=== PATIENT | male | born 1980 | race Caucasian/White ===

== ENCOUNTER 2021-05-05 18:27 | Emergency (ER) | payer MEDICAID, SELFPAY ==
[2021-05-05 18:39] VITALS: BP 134/74; PULSE 116; RESP 18; TEMP 39.4; O2SAT 93; BMI 28.0
--- NOTE | 2021-05-05 18:52 | XRR_ITS ---
PROCEDURE INFORMATION: Exam: XR Chest Exam date and time: 05/05/2021 6:52 PM Age: 40 years old Clinical indication: Cough and fever; Additional info: Fever and upper respiratory symptoms TECHNIQUE: Imaging protocol: XR of the chest. Views: 1 view. COMPARISON: No relevant prior studies available. FINDINGS: Lungs: Unremarkable. No consolidation. Pleural spaces: Unremarkable. No pleural effusion. No pneumothorax. Heart/Mediastinum: Unremarkable. No cardiomegaly. Bones/joints: Unremarkable. XR/XR chest 1V portable [id number] IMPRESSION: No acute findings.
--- NOTE | 2021-05-05 18:56 | W.ED.FEVER ---
HPI - Fever General: Chief Complaint: Fever Stated Complaint: Fever\Chills Time Seen by Provider: 05/05/21 18:51 History of Present Illness: Patient is a 40-year-old male comes to the ED with fever and upper respiratory symptoms. Symptoms started yesterday. He is had a fever and has taken some ibuprofen and Tylenol yesterday and then took 600 mg of ibuprofen at 5:15 PM this evening for fever. He reports nasal congestion drainage and a productive cough produces a yellow sputum. Endorses body aches. Patient has had COVID-19 vaccination and also diagnosed with Covid and recovered from it after vaccinated. He reports that one of his children recently had same symptoms but recovered quickly. Patient has been able to keep food and fluids down. Patient denies any nausea/vomiting, abdominal pain, sore throat, bladder or bowel symptoms. Associated symptoms: Reports nasal congestion; Deny abdominal pain, flank pain, chills, chest pain, diarrhea, dysuria, headache(s), nausea or vomiting Review of Systems Const: Reports: fever(s) and body aches; Denies: chills or fatigue Eyes: Denies: change in vision or eye discomfort ENMT: Reports: nasal discharge and nasal congestion; Denies: throat pain, odynophagia or ear or mastoid pain Card: Denies: chest pain, palpitations, edema, swelling of feet/ankles, dyspnea on exertion or orthopnea Resp: Reports: productive cough and change in phlegm color (Yellow sputum); Denies: dyspnea or non-productive cough GI: Denies: abdominal pain, nausea, vomiting, diarrhea, constipation or hematochezia : Denies: flank pain, difficulty urinating, dysuria or hematuria Musc: Denies: neck pain, back pain or extremity swelling Skin/Breast: Denies: rash or new lesions Neuro: Denies: headache(s), numbness in extremities or weakness in extremities PFSH ED PFSH: Medical History No pertinent family history Surgical History No pertinent past surgical history Physical Exam Const: COMMON NORMALS: no acute distress, patient oriented x3 and alert GENERAL APPEARANCE: cooperative and comfortable HENMT: COMMON NORMALS: normocephalic HEAD & SCALP: normocephalic MOUTH: Normal oral and palatal mucosa present THROAT: posterior oropharynx normal and uvula midline Neck/C-Spine: COMMON NORMALS: supple GENERAL: Yes normal visual inspection Resp: COMMON NORMALS: normal respiratory effort, No retractions, No use of accessory muscles and clear to auscultation bilaterally EFFORT & INSPECTION: Yes able to speak in complete sentences, No tachypneic, No respiratory distress and Yes Actively coughing productive AUSCULTATION: clear to auscultation bilaterally and wheezes (mild upper bilateral wheezing) expiratory wheezes and upper bilaterally Cardio: COMMON NORMALS: regular rate, regular rhythm, S1 normal heart sound present, S2 normal heart sound present, No gallops present (Cardio), No clicks present (Cardio), No murmurs present (Cardio) and Peripheral pulses 2+ throughout RATE: regular rate RHYTHM: regular rhythm HEART SOUNDS: S1 normal heart sound present and S2 normal heart sound present PERIPHERAL PULSES: Peripheral pulses 2+ throughout GI: COMMON NORMALS: Normal to inspection, nondistended, normoactive bowel sounds present, Soft to palpation, non-tender and no masses PALPATION: Yes Soft to palpation : COMMON NORMALS: Yes no CVA tenderness BLADDER/KIDNEY EXAM: Yes no CVA tenderness Back/Pelvis: COMMON NORMALS: no CVA tenderness Extremity: COMMON NORMALS: normal to inspection Neuro: COMMON NORMALS: patient oriented x3 and moves all extremities SENSORIUM/ORIENTATION: Yes alert Skin: GENERAL SKIN EXAM: dry skin Course Vital Signs: Vital signs: Vital Signs Temperature 100.7 F H 05/05/21 20:31 Pulse Rate 113 H 05/05/21 20:31 Respiratory Rate 16 05/05/21 20:31 Blood Pressure 135/77 05/05/21 20:31 Pulse Oximetry 94 05/05/21 20:31 MDM - Fever Medical Decision Making Patient is a 40-year-old male who comes to the ED with upper respiratory viral symptoms. Symptoms started yesterday. He has a fever, nasal congestion, cough that is productive with yellow sputum and body aches. He has been able to keep p.o. food and fluids down has no episodes of vomiting, abdominal pain or diarrhea. Patient is a fever with a temperature of 103 on arrival here in the ED. He appears in no acute distress or pain. He has some mild wheezing in bilateral upper lungs. Chest x-ray showed no acute findings. Covid was negative. Influenza A positive. Patient was given Tylenol and a DuoNeb breathing treatment while here in the ED. Patient was stable for discharge. His temperature went down to 100.7 at discharge. He was sent home with a prescription for prednisone. He was told to follow-up with his PCP in the next 5 to 7 days for reevaluation. He was discharged home while Covid and influenza labs were pending. I told him to contact [facility] tomorrow morning to get Covid and influenza test results. Patient understood and agreed with plan. Lab Data I reviewed the patient's lab results. Radiology Impressions Chest X-Ray 05/05/21 18:52 IMPRESSION: No acute findings. Laboratory Results Nasal Influ A H1 2009 PCR Cancelled 05/05/21 21:06 Coronavirus 229E (PCR) Not detected (NOT DETECT) 05/05/21 19:05 Influenza A (H1) PCR Cancelled 05/05/21 21:06 Influenza A (H3) PCR Cancelled 05/05/21 21:06 Influenza Type A (PCR) Cancelled 05/05/21 21:06 Influenza Type B (PCR) Cancelled 05/05/21 21:06 SARS-CoV-2 (PCR) Not detected (NOT DETECT) 05/05/21 19:05 Discharge Plan Discharge Patient Disposition: Home Clinical Impression: Influenza A Condition: Stable Prescriptions: New prednisone 5 mg tablets,dose pack See Rx Instructions .ROUTE .COMPLEX Qty: 21 0RF Rx Instructions: prednisone 5 mg: take 8 tablets (40 mg) on Day 1; 7 tablets (35 mg) on Day 2; then decrease by 1 tablet every day until finished No Action amlodipine-benazepril 10-20 mg Capsule 1 cap PO DAILY 0RF escitalopram oxalate 20 mg tablet 20 mg PO DAILY 0RF Multi For Him (no iron) 400-40 mcg Capsule 1 cap PO DAILY 0RF Discharge Orders: Discharge ED (Routine); Ordered 05/05/21 Ordered By: Wolf Medina Discharge Diet: Regular Discharge Activity: Increase activity as tolerated Patient Instructions: Viral Syndrome (ED) Activity Restrictions/Additional Instructions: Follow-up with medical provider as directed in the next 5 to 7 days for reevaluation. Your influenza and Covid tests are still pending so contact [facility] in the morning to find out results. Take medications as prescribed. Continue rotating between Tylenol and ibuprofen to help with fevers. Drink plenty of fluids to stay hydrated. Return to the ER or your medical provider if condition worsens. Please read and understand discharge instructions. Thank you for choosing [facility] for your healthcare needs today. Please realize this is an emergency room and that we are providing you with a medical screening exam and this may not be complete and all inclusive of all the testing and or work up that you may need to determine your ailment or severity of your illness. It is very important that you follow up as instructed or that you return to the Emergency Department should you have concerns or if your condition changes or worsens in any way. Coding Level of Care Code ED Firer Portable Boiler for Silvestre Damon Exam Comprehensive
[2021-05-05] MEDS: acetaminophen 500 mg Tablet 1000 MG PO (19:12)
[2021-05-05 19:24] VITALS: BP 158/83; PULSE 108; RESP 16; TEMP 39.1; O2SAT 95
[2021-05-05 19:57] VITALS: PULSE 106; RESP 20; O2SAT 94
[2021-05-05] MEDS: ipratropium-albuterol 3 mL Neb INHALATION (19:57)
[2021-05-05 20:02] VITALS: PULSE 107
[2021-05-05 20:31] VITALS: BP 135/77; PULSE 113; RESP 16; TEMP 38.2; O2SAT 94
[2021-05-05 21:00] LABS: Adenovirus Not Detected (NOT DETECT); Chlamydia Pneumoniae Not Detected (NOT DETECT); Coronavirus 229E,HKU1,NL63,OC4 Not Detected (NOT DETECT); Human Metapneumovirus Not Detected (NOT DETECT); Human Rhinovirus/Enterovirus Not Detected (NOT DETECT); Influenza A Detected (NOT DETECT); Influenza A H1 Not Detected (NOT DETECT); Influenza A H1-2009 Not Detected (NOT DETECT); Influenza A H3 Detected (NOT DETECT); Influenza B Not Detected (NOT DETECT); Mycoplasma Pneumoniae Not Detected (NOT DETECT); Parainfluenza Virus Type 1 Not Detected (NOT DETECT); Parainfluenza Virus Type 2 Not Detected (NOT DETECT); Parainfluenza Virus Type 3 Not Detected (NOT DETECT); Parainfluenza Virus Type 4 Not Detected (NOT DETECT); Respiratory Syncytial Virus A Not Detected (NOT DETECT); Respiratory Syncytial Virus B Not Detected (NOT DETECT); SARS-COV-2 Not Detected (NOT DETECT)
[2021-05-05 21:07] LABS: Results from GEN
== END 2021-05-05 20:32 | disposition home or self-care (01) ==
PROVIDERS: Emergency Provider Physician Assistant
DX: J10.1 Influenza due to other identified influenza virus with other respiratory manifestations (principal); Z20.822 Contact with and (suspected) exposure to COVID-19
CPT/HCPCS: 71045; 87631; 87635; 94640; 99283

== ENCOUNTER 2022-01-03 10:33 | Emergency (ER) | payer MEDICAID, SELFPAY ==
[2022-01-03 10:55] VITALS: BP 151/72; PULSE 85; RESP 16; TEMP 37.1; O2SAT 96; BMI 25.8
--- NOTE | 2022-01-03 11:08 | XRR_ITS ---
PROCEDURE INFORMATION: Exam: XR Chest Exam date and time: 01/03/2022 12:31 PM Age: 41 years old Clinical indication: Cough and dyspnea; Additional info: Dyspnea/cough TECHNIQUE: Imaging protocol: Radiologic exam of the chest. Views: 1 view. COMPARISON: CR XR chest 1V portable [id number] 05/05/2021 6:05 PM FINDINGS: Lungs: Left basilar airspace opacity. Pleural spaces: Unremarkable. No pleural effusion. No pneumothorax. Heart/Mediastinum: Unremarkable. No cardiomegaly. Bones/joints: Unremarkable. XR/XR chest 1V portable [id number] IMPRESSION: Left basilar airspace opacity is suspicious for pneumonia.
[2022-01-03 11:18] VITALS: BP 125/71; PULSE 85; RESP 16; TEMP 37.1; O2SAT 93
--- NOTE | 2022-01-03 11:21 | ED_ITS ---
HPI - SOB/Dyspnea General: Chief Complaint: Upper Respiratory Infection Stated Complaint: Chills, hard to breath. Time Seen by Provider: 01/03/22 11:07 Source: patient Mode of arrival: ambulatory History of Present Illness: HPI Narrative: 41-year-old female presents emergency room complaining of cough and shortness of breath for the last 12 days. Cough is been moderately productive low-grade fever no history of any chronic respiratory illnesses other family members with respiratory illnesses at home. Denies chest pain denies abdominal pain MD elicited complaint: shortness of breath and cough Onset (ago): day(s) (12) Timing: constant and progressively worsening Severity: moderate Exacerbating factors: nothing Relieving factors: nothing Associated symptoms: Reports chest congestion and cough; Deny abdominal pain, chest pain, diaphoresis, dizziness, extremity pain, fever(s), hemoptysis, lightheadedness, myalgias, nausea, orthopnea, palpitations, paresthesias, polydipsia, polyuria, rash, sense of impending doom, syncope or vomiting Treatment prior to arrival: none Review of Systems Const: Reports: fatigue; Denies: fever(s), chills, malaise or diaphoresis ENMT: Denies: throat pain, ear or mastoid pain, nasal discharge or nasal congestion Card: Denies: chest pain, palpitations, lightheadedness, syncope or orthopnea Resp: Reports: chest congestion; Denies: hemoptysis GI: Denies: abdominal pain, nausea or vomiting : Denies: flank pain, dysuria, urinary frequency or urinary urgency Musc: Denies: extremity pain Skin/Breast: Denies: rash or pruritus Neuro: Denies: dizziness Endo: Denies: polyuria or polydipsia PFSH ED PFSH: Medical History No pertinent family history Surgical History No pertinent past surgical history Physical Exam Const: GENERAL APPEARANCE: cooperative and comfortable ORIENTATION/CONSCIOUSNESS: Yes awake, Yes oriented to person, Yes oriented to place and Yes oriented to time HENMT: COMMON NORMALS: normocephalic, atraumatic and hearing grossly normal b ilaterally HEAD & SCALP: normocephalic and atraumatic Resp: COMMON NORMALS: normal respiratory effort, No retractions, No use of accessory muscles and clear to auscultation bilaterally AUSCULTATION: clear to auscultation bilaterally Cardio: COMMON NORMALS: regular rate, regular rhythm and No murmurs present (Cardio) RATE: regular rate RHYTHM: regular rhythm GI: COMMON NORMALS: Soft to palpation and No hepatosplenomegaly present AUSCULTATION: Yes normoactive bowel sounds PALPATION: Yes Soft to palpation, No Tenderness to palpation present (GI), No Guarding due to palpation present (GI) and Yes No hepatosplenomegaly present Extremity: COMMON NORMALS: normal to inspection, capillary refill normal, no clubbing, cyanosis or edema, no calf tenderness and no pedal edema Neuro: SENSORIUM/ORIENTATION: Yes oriented to person, Yes oriented to place and Yes oriented to time Skin: COMMON NORMALS: no rashes or lesions noted GENERAL SKIN EXAM: no rashes or lesions noted Course Vital Signs: Vital signs: Vital Signs Temperature 98.7 F 01/03/22 13:13 Pulse Rate 85 01/03/22 13:13 Respiratory Rate 16 01/03/22 13:13 Blood Pressure 104/83 01/03/22 13:13 Pulse Oximetry 93 01/03/22 13:13 Oxygen Delivery Me thod 01/03/22 11:18 MDM - SOB/Dyspnea Medical Decision Making Left lower lobe pneumonia. Start oral antibiotics follow-up if not improving Medical Records I reviewed the patient's medical records. Lab Data I reviewed the patient's lab results. 01/03/22 11:26 01/03/22 11:26 Labs/Radiology: Radiology Impressions Chest X-Ray 01/03/22 11:08 IMPRESSION: Left basilar airspace opacity is suspicious for pneumonia. Laboratory Results WBC 9.8 10^3/uL (4.0-10.0) 01/03/22 11: RBC 4.99 10^6/uL (4.1-5.3) 01/03/22 11:26 Hgb 15.2 g/dL (11.7-16.6) 01/03/22 11: Hct 44.9 % (42.0-52.0) 01/03/22 11: MCV 90.0 fl (80-94) 01/03/22 11:26 MCH 30.5 pg (28.0-34.0) 01/03/22 11: MCHC 33.9 g/dL (30.0-36.0) 01/03/22 11: RDW 12.6 % (12.1-15.1) 01/03/22 11: Plt Count 371 10^3/cmm (130-400) 01/03/22 11: MPV 9.7 fL (7.4-10.4) 01/03/22 11: Neut % (Auto) 73.2 % 01/03/22 11:26 Lymph % (Auto) 14.3 % 01/03/22 11:26 Tompkins % (Auto) 7.2 % 01/03/22 11: Eos % (Auto) 4.2 % 01/03/22 11: Baso % (Auto) 0.7 % 01/03/22 11: Neut # (Auto) 7.16 10^3/uL (1.8-7.7) 01/03/22 11: Lymph # (Auto) 1.4 10^3/uL (0.8-4.8) 01/03/22 11: Tompkins # (Auto) 0.7 10^3/uL (0.2-0.9) 01/03/22 11: Eos # (Auto) 0.4 10^3/uL (0.0-0.8) 01/03/22 11: Baso # (Auto) 0.1 10^3/uL (0.0-0.1) 01/03/22 11: Nucleated RBC % (auto) 0 % 01/03/22 11: Nucleated RBCs # 0.0 /100WBC 01/03/22 11:26 Sodium 140 mmol/L (136-145) 01/03/22 11: Potassium 3.5 mmol/L (3.5-5.1) 01/03/22 11: Chloride 102 mmol/L (98-107) 01/03/22 11: Carbon Dioxide 25 mmol/L (22-29) 01/03/22 11: Anion Gap 16.5 (5-19) 01/03/22 11: BUN 9 mg/dL (6-20) 01/03/22 11: Creatinine 1.0 mg/dL (0.7-1.2) 01/03/22 11: GFR Calculation 83.2 mL/min (90-130) L 01/03/22 11:26 Glucose 133 mg/dL (65-115) H 01/03/22 11:26 Calculated Osmolality 291 mOsm/kg (285-295) 01/03/22 11:26 Calcium 9.1 mg/dL (8.5-10.5) 01/03/22 11:26 Total Bilirubin 0.6 mg/dL (0.15-1.2) 01/03/22 11:26 AST 14 U/L (0-40) 01/03/22 11:26 ALT 13 U/L (0-41) 01/03/22 11:26 Alkaline Phosphatase 110 U/L (40-130) 01/03/22 11:26 Total Protein 7.1 g/dL (6.6-8.7) 01/03/22 11: Albumin 4.0 g/dL (3.5-5.2) 01/03/22 11: Globulin 3.1 g/dL (1.3-4.6) 01/03/22 11:26 Discharge Plan Discharge Patient Disposition: Home Clinical Impression: LLL pneumonia Condition: Stable Prescriptions: New albuterol sulfate 90 mcg/actuation HFA aerosol inhaler 2 inh INHALATION Q4H PRN (Reason: shortness of breath or wheezing) Qty: 18 0RF No Action amlodipine-benazepril 10-20 mg Capsule 1 cap PO DAILY escitalopram oxalate 20 mg tablet 20 mg PO DAILY Multi For Him (no iron) 400-40 mcg Capsule 1 cap PO DAILY prednisone 5 mg tablets,dose pack See Rx Instructions .ROUTE .COMPLEX Qty: 21 0RF Rx Instructions: prednisone 5 mg: take 8 tablets (40 mg) on Day 1; 7 tablets (35 mg) on Day 2; then decrease by 1 tablet every day until finished Discharge Orders: Discharge ED (Routine); Ordered 01/03/22 Ordered By: Wero Tamayo Discharge Diet: Usual diet Discharge Activity: Increase activity as tolerated Activity Restrictions/Additional Instructions: Levaquin once daily for 7 days. Use albuterol as needed for relief of cough congestion if not improving the next 3 to 4 days follow-up with primary care doctor. Coding Level of Care Code ED Sagger Preparer for Chg Marisol
[2022-01-03 11:31] LABS: Basophils # 0.1 10^3/uL (0.0-0.1); Basophils % 0.7 %; Eosinophils # 0.4 10^3/uL (0.0-0.8); Eosinophils % 4.2 %; Hematocrit 44.9 % (42.0-52.0); Hemoglobin 15.2 g/dL (11.7-16.6); Lymphocytes # 1.4 10^3/uL (0.8-4.8); Lymphocytes % 14.3 %; Mean Corpuscular HGB Conc 33.9 g/dL (30.0-36.0); Mean Corpuscular Hemoglobin 30.5 pg (28.0-34.0); Mean Platelet Volume 9.7 fL (7.4-10.4); Monocytes # 0.7 10^3/uL (0.2-0.9); Monocytes % 7.2 %; Neutrophils # 7.16 10^3/uL (1.8-7.7); Neutrophils % 73.2 %; Nucleated Red Blood Cells % 0 %; Platelet Count 371 10^3/cmm (130-400); Red Blood Count 4.99 10^6/uL (4.1-5.3); Red Cell Distribution Width 12.6 % (12.1-15.1); White Blood Count 9.8 10^3/uL (4.0-10.0)
[2022-01-03 11:51] LABS: Alanine Aminotransferase 13 U/L (0-41); Alkaline Phosphatase 110 U/L (40-130); Anion Gap 16.5 (5-19); Aspartate Amino Transferase 14 U/L (0-40); Blood Urea Nitrogen 9 mg/dL (6-20); Calcium 9.1 mg/dL (8.5-10.5); Carbon Dioxide 25 mmol/L (22-29); Chloride 102 mmol/L (98-107); Globulin 3.1 g/dL (1.3-4.6); Glomerular Filtration Rate 83.2 mL/min (90-130); Glucose 133 mg/dL (65-115); Osmolality Calculated 291 mOsm/kg (285-295); Potassium 3.5 mmol/L (3.5-5.1); Sodium 140 mmol/L (136-145); Total Bilirubin 0.6 mg/dL (0.15-1.2); Total Protein 7.1 g/dL (6.6-8.7)
[2022-01-03 13:13] VITALS: BP 104/83; PULSE 85; RESP 16; TEMP 37.1; O2SAT 93
== END 2022-01-03 13:10 | disposition home or self-care (01) ==
PROVIDERS: Emergency Provider Family Medicine; PCP Nurse Practitioner Family
DX: J18.9 Pneumonia, unspecified organism (principal)
CPT/HCPCS: 71045; 80053; 85025; 99283

== ENCOUNTER 2022-04-12 16:04 | Outpatient (CLI) | payer MEDICAID, SELFPAY ==
--- NOTE | 2022-04-12 16:21 | XR_ITS ---
WS: [id number] Exam: XR KUB [id number] Date/Time of Exam: 04/12/2022 4:22 PM Reason For Exam: HEMATURIA, LEFT FLANK PAIN, ABDOMINAL PAIN LEFT LOWER QUAD No bowel obstruction or free air. A 3 mm calcification seen along the left paraspinal region at about the level of the L3. No sign of organ enlargement. Numerous surgical clips in the right pelvis. Bony structures are unremarkable. XR/XR KUB [id number] IMPRESSION: 1. A 3 mm left paraspinal calcification at about the level of L3. This is nonsp ecific but could represent a urinary tract stone. 2. No acute abdominal process.
== END 2022-04-12 16:05 | disposition home or self-care (01) ==
PROVIDERS: PCP Nurse Practitioner Family; Visit Provider Nurse Practitioner Family
DX: R31.9 Hematuria, unspecified (principal); R10.32 Left lower quadrant pain
CPT/HCPCS: 74018